=== PATIENT | male | born 1940 | race Caucasian/White ===

== ENCOUNTER → 2019-10-29 09:40 | Outpatient (BNVA) | payer MEDICARE, SELFPAY | PROVIDERS: Family Provider Family Medicine; PCP Family Medicine; Visit Provider Nurse Practitioner Family | DX: R97.20 Elevated prostate specific antigen [PSA] (principal) | CPT/HCPCS: 36415 ==

== ENCOUNTER → 2019-11-01 11:11 | Outpatient (BNVA) | payer MEDICARE, SELFPAY | PROVIDERS: Family Provider Family Medicine; PCP Family Medicine; Visit Provider Urology | DX: R97.20 Elevated prostate specific antigen [PSA] (principal); N99.89 Other postprocedural complications and disorders of genitourinary system | CPT/HCPCS: 81001 ==

== ENCOUNTER → 2020-02-04 13:15 | Outpatient (BNVA) | payer MEDICARE, SELFPAY | PROVIDERS: Family Provider Family Medicine; PCP Family Medicine; Visit Provider Nurse Practitioner Family | DX: R97.20 Elevated prostate specific antigen [PSA] (principal) | CPT/HCPCS: 84153 ==

== ENCOUNTER 2020-06-16 10:07 | Outpatient (CLI) | payer MEDICARE, SELFPAY | END 2020-06-16 10:08 | disposition home or self-care (01) | LOC: LAB 10:13 | PROVIDERS: PCP Family Medicine; Visit Provider Urology | DX: R97.20 Elevated prostate specific antigen [PSA] (principal) | CPT/HCPCS: 81001; 84153 ==

== ENCOUNTER → 2020-07-29 13:00 | Outpatient (BNVA) | payer MEDICARE, SELFPAY | PROVIDERS: PCP Family Medicine; Visit Provider Urology | DX: R31.0 Gross hematuria (principal); R97.20 Elevated prostate specific antigen [PSA]; N52.9 Male erectile dysfunction, unspecified; R33.8 Other retention of urine | CPT/HCPCS: 81001 ==

== ENCOUNTER → 2020-11-03 10:54 | Outpatient (BNVA) | payer MEDICARE, SELFPAY | PROVIDERS: PCP Family Medicine; Visit Provider Urology | DX: R97.20 Elevated prostate specific antigen [PSA] (principal) | CPT/HCPCS: 84153; 84154 ==

== ENCOUNTER → 2020-11-04 09:12 | Outpatient (BNVA) | payer MEDICARE, SELFPAY | PROVIDERS: PCP Family Medicine; Visit Provider Urology | DX: R97.20 Elevated prostate specific antigen [PSA] (principal); N52.9 Male erectile dysfunction, unspecified; R93.89 Abnormal findings on diagnostic imaging of other specified body structures | CPT/HCPCS: 81003 ==

== ENCOUNTER → 2021-05-06 10:54 | Outpatient (BNVA) | payer MEDICARE, SELFPAY | PROVIDERS: PCP Family Medicine; Visit Provider Urology | DX: R97.20 Elevated prostate specific antigen [PSA] (principal); R33.8 Other retention of urine; N52.9 Male erectile dysfunction, unspecified | CPT/HCPCS: 81003; 84153 ==

== ENCOUNTER 2021-06-24 13:03 | Outpatient (CLI) | payer MEDICARE, SELFPAY ==
--- NOTE | 2021-06-24 13:14 | XR_ITS ---
WS: [id number] KNEE LEFT TECHNIQUE: 3 views of the left knee CLINICAL INFORMATION: KNEE JOINT PAIN, LEFT COMPARISON: None. 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 Hypertrophic patella. Small suprapatellar effusion. Soft tissue edema. Mild hypertrophic change s along the joint line. No acute fractures. XR/XR knee LT 3V* [id number] IMPRESSION: 1. Moderate degenerative narrowing medial joint compartment and patellofemoral articulation. 2. Small suprapatellar effusion with soft tissue edema. Kellgren-Jimmy Classification: grade 3 (moderate): moderate multiple osteoph ytes, definite narrowing of joint space and some sclerosis and possible deformi ty of bone ends
== END 2021-06-24 13:04 | disposition home or self-care (01) ==
PROVIDERS: PCP Family Medicine; Visit Provider Clinical Nurse Specialist Adult Health
DX: M25.562 Pain in left knee (principal); R60.0 Localized edema; M25.462 Effusion, left knee
CPT/HCPCS: 73562

== ENCOUNTER 2021-11-05 10:05 | Outpatient (CLI) | payer MEDICARE, SELFPAY | END 2021-11-05 10:06 | disposition home or self-care (01) | LOC: LAB 10:12 | PROVIDERS: PCP Family Medicine; Visit Provider Urology | DX: R97.20 Elevated prostate specific antigen [PSA] (principal) | CPT/HCPCS: 36415; 81003; 84153 ==

== ENCOUNTER → 2022-02-04 10:01 | Outpatient (BNVA) | payer MEDICARE, SELFPAY | PROVIDERS: PCP Family Medicine; Visit Provider Urology | DX: R97.20 Elevated prostate specific antigen [PSA] (principal) | CPT/HCPCS: 81003; 84153 ==

== ENCOUNTER 2022-08-05 09:34 | Outpatient (CLI) | payer MEDICARE, SELFPAY | END 2022-08-05 09:35 | disposition home or self-care (01) | LOC: LAB 09:36 | PROVIDERS: PCP Family Medicine; Visit Provider Urology | DX: R97.20 Elevated prostate specific antigen [PSA] (principal) | CPT/HCPCS: 36415; 81003; 84153; 99213 ==

== ENCOUNTER 2023-02-03 14:08 | Outpatient (CLI) | payer MEDICARE, SELFPAY ==
[2023-02-03 15:06] LABS: Prostate Specific AG Urology 8.66 ng/mL (0-4)
== END 2023-02-03 14:09 | disposition home or self-care (01) ==
PROVIDERS: PCP Family Medicine; Visit Provider Urology
DX: R97.20 Elevated prostate specific antigen [PSA] (principal)
CPT/HCPCS: 84153

== ENCOUNTER → 2023-02-08 11:05 | Outpatient (BNVA) | payer MEDICARE, SELFPAY | PROVIDERS: PCP Family Medicine; Visit Provider Urology | DX: R97.20 Elevated prostate specific antigen [PSA] (principal) | CPT/HCPCS: 51798; 81003; 99213 ==

== ENCOUNTER → 2024-03-29 13:15 | Outpatient (BNVA) | payer MEDICARE, SELFPAY | PROVIDERS: PCP Clinical Nurse Specialist Adult Health; Visit Provider Clinical Nurse Specialist Adult Health | DX: R97.20 Elevated prostate specific antigen [PSA] (principal) | CPT/HCPCS: 84153 ==

== ENCOUNTER → 2025-02-07 13:57 | Outpatient (BNVA) | payer MEDICARE, SELFPAY | PROVIDERS: PCP Family Medicine; Visit Provider Family Medicine | DX: I10 Essential (primary) hypertension (principal); R97.20 Elevated prostate specific antigen [PSA] | CPT/HCPCS: 80053; 85025; G0103 ==

== ENCOUNTER → 2025-06-11 13:37 | Outpatient (BNVA) | payer MEDICARE, SELFPAY | PROVIDERS: PCP Family Medicine; Visit Provider Internal Medicine Cardiovascular Disease | DX: R07.9 Chest pain, unspecified (principal) | CPT/HCPCS: 93005 ==

== ENCOUNTER 2025-07-02 12:55 | Outpatient (CLI) | payer MEDICARE, SELFPAY ==
--- NOTE | 2025-07-02 | ECG_ITS ---
[email or web address] Date: 2025-07-02 Pat Name: Mehdi Bello (Teddy)partment: Room: Gender: Male [employer]ist: : 1940 Requested By: Francisco Amin Order Number: [id number] Reading MD: Main Up M.D. Interpretive Statements EXERCISE STRESS TEST EXERCISE DATA: The patient was exercised by Richard protocol. Baseline heart rate was 58 beats per minute. Baseline blood pressure was 188/99 millimeters of mercury. Maximal predicted heart rate was 137 beats per minute. Maximum heart rate achieved was 132, which was 96% of the maximum predicted heart rate. Maximum blood pressure was 196/90 millimeters of mercury. Total exercise time was 4 minutes and 24 seconds. Maximum METs achieved was 7. The reason for ending the test was maximal effort achieved. The patient complained of shortness of breath during the stress test, which then resolved at the end of the test. ELECTROCARDIOGRAM: BASELINE: Showed sinus rhythm, normal axis, no significant ST-T changes at the baseline noted. [] EXERCISE: At the peak exercise level, [] No significant ST-T changes suggestive of ischemia noted. [] RECOVERY: During the recovery period, heart rate dropped appropriately. No significant ST-T changes in the recovery suggestive of ischemia noted. [] CONCLUSION: 1. Exercise capacity is fair. 2. Heart rate response was appropriate 3. Blood pressure response was appropriate 4. Symptoms not suggestive of ischemia. 5. Stress test is not suggestive of ischemia. Electronically Signed On 07-14-2025 00:44:14 CDT by Main Up M.D. [email or web address]
[2025-07-02 13:05] VITALS: BMI 24.9
--- NOTE | 2025-07-02 13:05 | USCV_ITS ---
Stress Echo Mehdi Corey (Jeancarlos) Age: 84 Gender: M : 1940 Exam Date: 07/02/2025 13:14 Ordering Phys: Francisco Amin MD ([email or web address]) Technologist: [place] [facility] [place] CP Rhythm: Sinus Patient History: HTN, Paroyxsymal Afib Cardiac Medications: Amlodipine 5mg Daily, 81mg ASA daily Medications in past 24 hours: None Contrast: Stress Results Protocol: Richard Total dose(mL): Exercise Duration (min:sec): 4:24 METS: 7.0 Resting HR: 59 Resting BP: 188 / 99 Peak HR: 132 Peak BP: 196 / 106 Max Predicted HR: 137 96 % Max Predicted HR Target HR: 116 Double Product: 19937 Stress Summary: The patient's target heart rate was achieved BP Response: Normal Reason for Termination: Test terminated after reaching target heart rate (85% max predicted) Cardiac Symptoms: None ECG Analysis Resting ECG: Normal sinus rhythm Stress ECG: Sinus tachycardia with no significant ST T wave changes Arrhythmia: PVCs seen MEASUREMENTS (Male/Female) Normal Values FINDINGS At baseline normal LV systolic function with EF of 55-60%. No regional wall motion abnormalities. On exercise, LV systolic function became hyperdynamic with no regional wall abnormalities. No evidence of ischemia. CONCLUSIONS LV systolic function is normal with EF of 55-60%. No regional wall motion abnormalities. Echocardiographic stress test is normal with no evidence of ischemia. EKG portion of stress test does not show ischemia Main Up MD (Electronically Signed) Final Date: 09 July 2025 11:39 S
[2025-07-02 13:42] VITALS: BP 149/75; PULSE 67
== END 2025-07-02 12:56 | disposition home or self-care (01) ==
LOC: CDL 12:56
PROVIDERS: PCP Family Medicine; Visit Provider Internal Medicine Cardiovascular Disease
DX: R07.9 Chest pain, unspecified (principal)
CPT/HCPCS: 93017; 93350

== ENCOUNTER 2025-07-23 13:21 | Outpatient (CLI) | payer MEDICARE, SELFPAY ==
--- NOTE | 2025-07-23 13:34 | XR_ITS ---
WS: [id number] XR foot RT min 3V* [id number] REASON FOR EXAM: R 3rd toe injury FINDINGS: Comminuted minimally displaced fracture of the distal phalanx of the the first toe. Mild osteoarthropathy in the DIP and PIP joints of the toes. Deformity of the distal second metatarsal, old healed fracture. Similar findings in the distal third metatarsal. moderate valgus subluxation of the first MTP joint with significant joint space narrowing, subchondral sclerosis/cystic change, and osteophytosis. Mild erosion of the underlying sesamoids. Mild varus deformity of the first TMT joint with minimal arthropathic change. Remainder of the joint spaces of the forefoot, the midfoot, and the subtalar joint are intact and relatively well preserved. XR/XR foot RT min 3V* [id number] IMPRESSION: First toe fracture Subluxations and arthropathy as above.
== END 2025-07-23 13:22 | disposition home or self-care (01) ==
PROVIDERS: PCP Family Medicine; Visit Provider Family Medicine
DX: S92.421A Displaced fracture of distal phalanx of right great toe, initial encounter for closed fracture (principal); X58.XXXA Exposure to other specified factors, initial encounter; Z87.81 Personal history of (healed) traumatic fracture
CPT/HCPCS: 73630

== ENCOUNTER → 2025-07-25 10:02 | Outpatient (BNVA) | payer MEDICARE, SELFPAY | PROVIDERS: PCP Family Medicine; Visit Provider Podiatrist Foot & Ankle Surgery | DX: S92.424B Nondisplaced fracture of distal phalanx of right great toe, initial encounter for open fracture (principal); V29.99XA Rider (driver) (passenger) of other motorcycle injured in unspecified traffic accident, initial encounter | CPT/HCPCS: 99204 ==

== ENCOUNTER → 2025-07-30 08:23 | Outpatient (BNVA) | payer MEDICARE, SELFPAY | PROVIDERS: PCP Family Medicine; Visit Provider Podiatrist Foot & Ankle Surgery | DX: S92.424B Nondisplaced fracture of distal phalanx of right great toe, initial encounter for open fracture (principal); V29.99XA Rider (driver) (passenger) of other motorcycle injured in unspecified traffic accident, initial encounter | CPT/HCPCS: 73630; 99213 ==

== ENCOUNTER → 2025-08-12 11:15 | Outpatient (BNVA) | payer MEDICARE, SELFPAY | PROVIDERS: PCP Family Medicine; Visit Provider Podiatrist Foot & Ankle Surgery | DX: S92.424B Nondisplaced fracture of distal phalanx of right great toe, initial encounter for open fracture (principal); V29.99XA Rider (driver) (passenger) of other motorcycle injured in unspecified traffic accident, initial encounter | CPT/HCPCS: 73630; 99213 ==